=== PATIENT | male | born 1995 | race African-American/Black ===

== ENCOUNTER 2020-12-12 20:40 | Emergency (ER) | payer OTHER ==
[~2020-12-12] VITALS: Ht 182.9 cm; Wt 90.1 kg
[2020-12-12 20:42] VITALS: BP 140/73
== END 2020-12-12 21:41 | disposition home or self-care (01) ==
LOC: M ED 20:40
DX: S86.002A Unspecified injury of left Achilles tendon, initial encounter (principal); X58.XXXA Exposure to other specified factors, initial encounter; Y92.830 Public park as the place of occurrence of the external cause; Y93.67 Activity, basketball; Y99.9 Unspecified external cause status